=== PATIENT | male | born 1975 | race Caucasian/White ===

== ENCOUNTER 2019-08-11 21:13 | Emergency (ER) | payer OTHER ==
[~2019-08-11] VITALS: Ht 185.4 cm; Wt 93.0 kg
[2019-08-11 21:16] VITALS: Ht 185.4 cm; Wt 93.0 kg
[2019-08-11 22:04] VITALS: BP 125/80
== END 2019-08-11 22:04 | disposition other institution (70) ==
LOC: ED 21:13
DX: Z02.89 Encounter for other administrative examinations (principal)